=== PATIENT | female | born 1935 | race Caucasian/White ===

== ENCOUNTER → 2017-04-26 | Outpatient (CLI) | payer MEDICARE, BC ==
[~2017-04-26] MED LIST: ASA5UEC PO; ASPIRIN EC81 M1 PO; AUGMENTIN 875-1 EACH PO; CALCIUM 600 +1 EAC1 PO; CEFUROXIME250 MG PO; CIPRO500 MG PO; COLACE100 MG PO; COUMADIN 5 MG TA5 M1; CYMBALTA60 MG PO; DOXYCYCLINE 10100 MG PO; DURAGESIC25 MCG/HR TRANSDERM; ELIQUIS2.5 MG PO; GABAPENTIN 100100 MG PO; HYDROCODONE-AP1 EAC6 PO; LIDOPATCH1 EACH TOP; LOVENOX; MEDROLDOSEPACK PO; METFORMIN; METFORMIN HCL500 MG PO; MICARDIS 20MG T20 M1 PO; MICARDIS40 MG PO; MOBIC7.5 MG PO; NEURONTIN 300300 M1 PO; NEURONTIN600 MG PO; NORCO 5-325 TA1 EACH PO; ONDANSETRON HCL4 M2 PO; OXYCODONE HCL 55 MG PO; REGLAN 10 MG TA10 MG PO; TETRACYCLINE H500 MG PO; TRAMADOL 50 MG50 MG PO; TRILIPIX45 MG PO; TYLENOL EXTRA500 MG PO; ULTRAM 50MG TAB50 MG PO; VITAMIN D3400 UNIT PO; VITAMIN E400 UNIT PO
== END ==
LOC: M.RAD 12:53
DX: M47.892 Other spondylosis, cervical region (principal); M25.511 Pain in right shoulder; Z98.890 Other specified postprocedural states

== ENCOUNTER 2017-08-08 07:19 | Inpatient (IN) | payer MEDICARE, BC ==
[2017-07-27 09:35] LABS: ABSOLUTE BASOPHILS 0.1 thou/uL (0.0-0.2); ABSOLUTE EOSINOPHILS 0.1 thou/uL (0.0-0.7); ABSOLUTE LYMPHOCYTES 1.4 thou/uL (0.8-5.3); ABSOLUTE MONOCYTES 0.6 thou/uL (0.0-1.2); ABSOLUTE NEUTROPHILS 5.2 thou/uL (1.6-8.1); BASOPHILS 0.7 %; EOSINOPHILS 1.8 %; HEMATOCRIT 38.6 % (37.0-47.0); HEMOGLOBIN 12.8 gm/dL (12.0-15.0); LYMPHOCYTES 18.5 %; MCH 28.2 pg (26.0-34.0); MCHC 33.1 g/dL (28.0-37.0); MONOCYTES 8.6 %; NUCLEATED RBCS 0 /100WBC; PLATELET COUNT* 365 thou/uL (150-400); POLYS 70.4 %; RBC 4.55 mil/uL (4.20-5.00); RDW-CV 13.5 % (10.5-14.5); WBC 7.3 thou/uL (4.0-11.0)
[2017-07-27 09:39] LABS: APTT 23.6 Seconds (25.0-31.3); PROTIME 9.5 Seconds (9.20-11.50)
[2017-07-27 09:52] LABS: ALBUMIN 3.6 g/dL (3.4-5.0); CALCIUM 8.7 mg/dL (8.5-10.1); CREATININE 0.8 mg/dL (0.6-1.3); POTASSIUM 3.6 mmol/L (3.5-5.1); TOTAL BILIRUBIN 0.3 mg/dL (<0.1-1.0); TOTAL PROTEIN 7.7 g/dL (6.4-8.2)
[2017-07-27 10:43] LABS: ESR (SEDRATE) 15 mm/hr (0-30)
--- NOTE | 2017-07-27 16:36 | EKG ---
[place] [address] ELECTROCARDIOGRAM REPORT Name: ANAYELI NANCE Room: PRE IN [facility]#: [id number] Admission: Attend Phys: René Mcallister Discharge: Date of : 35 Report #: [id number] THIS REPORT FOR: //name// [facility] Test Date: 2017-07-27 Test Time: 09:35:15 Pat Name: ANAYELI JONESGE Department: Room: Gender: F Dietetic Technician: : 1935 Requested By: Siddharth Gil Order Number: [id number] Reading MD: Dago Sequeira Measurements Intervals Viola Rate: 85 P: 48 AK: 167 QRS: -56 QRSD: 86 T: 60 QT: 366 QTc: 436 Interpretive Statements Sinus rhythm Left anterior fascicular block Possible anteroseptal infarct, old Compared to ECG 12/10/2016 19:26:26 Left anterior fascicular block now present Myocardial infarct finding now present Electronically Signed On 07-27-2017 16:36:33 CDT by Dago Sequeira [email or web address] <ELECTRONICALLY SIGNED> By: Dago Sequeira MD, [facility] 07/27/17 1636 0935 4 Dago Sequeira MD, [facility] /EPI
[~2017-08-08] VITALS: Ht 157.5 cm; Wt 65.8 kg
[~2017-08-08 07:19] MED LIST changes: -ELIQUIS2.5 MG PO; -OXYCODONE HCL 55 MG PO
[2017-08-08 12:05] VITALS: BP 139/67
[2017-08-08 16:10] VITALS: BP 125/59
[2017-08-08 16:13] VITALS: BP 132/78
--- NOTE | 2017-08-08 16:14 | OP ---
[address] [address] OPERATIVE REPORT Name: ANAYELI NANCE Room: [address] IN .R.#: [id number] Admission: 08/08/17 Attend Phys: René Mcallister Discharge: Date of : 35 Report #: [id number] THIS REPORT FOR: //name// CC: Melanie Barcenas DATE OF SERVICE: 08/08/2017 PREOPERATIVE DIAGNOSES: Primary varus deformity, osteoarthritis of the right knee. POSTOPERATIVE DIAGNOSES: Primary varus deformity, osteoarthritis of the right knee. SURGERY PERFORMED: MicroPort cemented three component right total knee arthroplasty, size 4 femur, size 4 tibia, 32 patella with a 14 mm polyethylene. SURGEON: Siddharht Gil DO. SEMICONDUCTOR WAFERS MARKER:Ajit Hwang DO. SECOND JOB ANALYST: Damaso Joe DO. ANESTHESIA: General anesthetic. followed with adductor block as well as a posterior capsular injection by Orthopedics. The patient did receive Ancef 2 grams IV piggyback preoperatively. She has no drains. SPECIMENS: No specimen. ESTIMATED BLOOD LOSS: 100 mL. No complications. GROSS FINDINGS: This patient prior to surgery had a painful arc of motion with [id number] deformity, primary varus deformity, osteoarthritis with osteophytes throughout, especially the femoral and medial side. The patient did demonstrate intraoperatively eburnated bone across the medial compartment as well as multiple osteophytes, femoral and tibial side medially and posteriorly. The patient post-placement of the prosthesis demonstrated a full global arc of motion with stability through the entire arc of motion. Her patella tracked well through the arc of motion. [address] [address] OPERATIVE REPORT Name: ANAYELI NANCE Room: [address] IN [facility].#: [id number] Admission: 08/08/17 Attend Phys: René Mcallister Discharge: Date of : 35 Report #: [id number] SURGERY IN DETAIL: The patient was taken to the operating room and placed on table, given the benefit of general anesthetic. She had previous to that an adductor block to the right leg. A well-padded tourniquet was placed high on the right thigh. This patient then underwent a Hibiclens scrub and chlorhexidine prep and sterile draping for right total knee surgery. A timeout was called and verified for the right. Surgery began without a tourniquet with a midline incision through skin and subcutaneous tissues across the knee region with a 10 blade scalpel. A second medial parapatellar capsular incision was made with a new knife blade. Patella everted, knee flexed 90 degrees. Hemostasis was maintained. Excess osteophytes were all removed at this stage. The patient did have distal femoral drill hole placed in routine fashion, followed with the distal femoral cut. Once the distal femoral cut was taken in a routine fashion, a standard cut at 3 degrees with the angle. We now went to the tibia side. At this point in time, an external guide was placed across the ankle proximally. The cutting block was secured in place. A wafer of bone was now cut, and a wafer of bone was removed without difficulty. We just skimmed the medial surface below that deficit site with the saw blade. Extension block was applied demonstrating excellent placement, so all pins were now removed. I went back and sized the femur now to a #4 component. Drill holes were placed for the #4, and the 4 in one block was applied. All cuts were now made. A trochlear cut was made. I went back to the tibia size, sized it to #4. At this stage, the small lug guide was left in the baseplate, was left in place. The 4 femur was placed, and we did a trial reduction at this stage. Patella was now cut using a Acacia reamer sized to a 32 and the patella tracked well once it was placed from the trial component. At this point in time, now I Esmarched this right lower extremity and inflated the tourniquet to 275 mmHg. The tibia baseplate now was reamed. The cruciform cut was made in routine fashion. All trial components were now removed. I did pulsatile lavage irrigation, cauterized all posterior corners of the knee at this stage as well. I now cemented in the tibial component #4, the femoral component #4 and the patella with the 14 mm trial spacer was placed in the tibia tray and held in extension until cement had hardened. At this point in time, the trial was removed. I did a posterior capsular injection and periosteal injection as well with the cocktail. I copiously pulsatile lavage irrigated one more time at this stage. All excess cement and debris were now removed. The real 14 mm polyethylene spacer was seated in the tibial tray and tamped into position. Leg was placed through one final range of motion very stable through the entire arc of motion. At this stage, the patient had TXA solution applied to the knee region. The tourniquet was released. Hemostasis was maintained. Capsule was closed with #1 Vicryl, #1 TiCron mryyvv-cc-wesco fashion, subcutaneous tissues with 2-0 Monocryl in inverted fashion and irene for the skin, followed with Mepilex dressing and a small compressive dressing, soft roll, after that with an Hira wrap. The patient was transferred off table, taken to recovery in stable [facility] [address] [place] [address] OPERATIVE REPORT Name: ANAYELI NANCE Room: [address] IN .R.#: [id number] Admission: 08/08/17 Attend Phys: René Mcallister Discharge: Date of : 35 Report #: [id number] condition. I attest I was present for all critical aspects of surgery. Needle, instrument, sponge counts correct. <ELECTRONICALLY SIGNED> By: Siddharth Gil DO 08/08/17 1614 1452 [id number] Gil DO /nt
--- NOTE | 2017-08-08 16:17 | NUR ---
PATIENT ADMITTED FROM PACU TO ROOM 103. ALERT AND ORIENTED. BACK PAIN FROM BED, TRANSFERRED PATIENT TO RECLINER PER HER REQUEST LYING MAKES HER BACK PAIN WORSE. PATIENT TRANSFERRED WITH ASSIST OF 2, GAITBELT, AND WALKER. TEDS IN PLACE. DRESSING TO KNEE DRY AND INTACT. TOLERATING LIQUIDS. O2 2L. CAPNO IN PLACE. SAT 98%. EDUCATED ON FALL PREVENTION. CALL LIGHT WITHIN REACH. WILL CONTINUE TO MONITOR.
--- NOTE | 2017-08-08 17:27 | NUR ---
PATIENT REMAINS ALERT AND ORIENTED. PAIN 6/10. HYDROCODONE GIVEN. PATIENT REMAINS UP IN CHAIR. DINNER ORDERED. IVF INFUSING ORDERED. CAPNO IN PLACE. O2 SAT 97%. CALL LIGHT WITHIN REACH. WILL CONTINUE TO MONITOR.
--- NOTE | 2017-08-08 17:48 | NUR ---
RECIEVED O.T. EVAL AND TX ORDER. WILL DEFER TO P.T. AND NURSING. PLEASE ORDER FURTHER O.T. SERVICES IF NEEDED.
[2017-08-08 20:00] VITALS: BP 109/42
[2017-08-09] VITALS: BP 116/60
[2017-08-09 04:00] VITALS: BP 112/46
[2017-08-09 04:38] LABS: HEMATOCRIT 30.4 % (37.0-47.0); HEMOGLOBIN 10.1 gm/dL (12.0-15.0)
--- NOTE | 2017-08-09 04:41 | NUR ---
PATIENT HAS REMAINED ALERT AND ORIENTED X 4 THROUGHOUT THE SHIFT AND RESTING QUIETLY ON HOURLY ROUNDS. UP TO BSC X 2 WITH ADEQUATE VOIDS. DENIES NAUSEA WITH ORAL FLUIDS. DRESSING RIGHT KNEE CLEAN AND DRY. CPM INITIATED HS, TOLERATED FAIR. MEDICATED FOR PAIN X 3 OF THIS WRITING TO GOOD EFFECT. VITAL SIGNS STABLE WITH O2 ON AT 2L/MIN AND CONTINUOUS CAPNOGRAPHY. CONTINUE TO MONITOR.
[2017-08-09 08:00] VITALS: BP 124/62
--- NOTE | 2017-08-09 16:05 | NUR ---
PATIENT REMAINS ALERT AND ORIENTED. RATES PAIN 10/10 MOST OF TIME. HYDROCODONE,OXYIR, AND FENTANYL GIVEN ORDERED. USED CPM X2 HOURS THIS AFTERNOON. UP TO CHAIR INTERMITTENTLY. RA SAT 95%. DRESSING TO KNEE DRY AND INTACT. ICE PACKS PROVIDED. SCD'S IN USE. VOIDING PER COMMODE. MILK OF MAG THIS AFTERNOON PATIENT HAS NOT HAD BM SINCE 08/06. BED ALARM SET. WILL CONTINUE TO MONITOR.
[2017-08-09 16:10] VITALS: BP 124/77
--- NOTE | 2017-08-09 18:46 | NUR ---
ISOLATION DC'S THIS AM PER INFECTION CONTROL NURSE
[2017-08-09 21:00] VITALS: BP 114/49
[2017-08-09 23:50] VITALS: BP 124/53
[2017-08-10 04:00] VITALS: BP 127/55
[2017-08-10 04:33] LABS: HEMOGLOBIN 9.9 gm/dL (12.0-15.0)
--- NOTE | 2017-08-10 04:59 | NUR ---
PATIENT ALERT AND ORIENTED. VITALS STABLE PLACED ON 2L AT HS, DUE TO 02 SAT OF 88% ON RA. LEFT KNEE DRESSING C/D/I. ICEPACK IN PLACE. STATES THAT PAIN IS BETTER CONTROLLED. UP WITH ASSIST X 1 TO BSC, SLOW TO AMBULATE. HOURLY ROUNDS. BED ALARM IN USE. NURSING WILL CONTINUE TO MONITOR.
[2017-08-10 08:15] VITALS: BP 102/50
[2017-08-10 08:31] VITALS: BP 102/50
--- NOTE | 2017-08-10 12:20 | NUR ---
PT.UP IN CHAIR. HAS BEEN NAUSEATED TODAY. SHE LIVES IN A [place]UP[place]. HER DAUGHTER LIVES WITH HER. SHE USES A WALKER. WAS IN OUR REHAB UNIT LAST YEAR AND USED [facility] FOR HOME HEALTH WHEN SHE CAME HOME. SHE IS NORMALLY FAIRLY INDEPENDENT AT HOME. COOKS,CLEANS,DRIVES. SHE FEELS SHE SHOULD GO TO [place] FOR A SHORT STAY . SHE SAID HER DAUGHTER PROBABLY WOULD NOT BE MUCH HELP. SHE FEELS SHE WILL GET MORE THERAPY AT [facility] ALSO. CM FAXED A REFERRAL TO [facility]. POSSIBLY READY FOR DISCHARGE TOMORROW.
--- NOTE | 2017-08-10 15:21 | NUR ---
ASSUMED CARES OF PT AT 0700. PT IN BED, BED IN LOW LOCKED POSITION, FALL PRECAUTIONS IN PLACE AND ACTIVE. CALL BUTTON AND PERSONAL ITEMS IN PT REACH. PT A&O X4, HRRR PER AUSCULTATION, LUNGS CLEAR TO DIMINISHED PER AUSCULTATION. VSS ON RA, AFEBRILE, PERRLA, PLEASANT, COOPERATIVE, TAKES MED WELL PO. PT OCC. STRESS INCONTINENCE. TREATING FOR CONSTIPATION, NO BM YET ON THIS SHIFT. PULSES WNL PEDAL AND RADIAL. PT UP SBA WITH GB AND WALKER, WBAT ON LEFT SURGICAL KNEE. DRESSING ON SURGICAL SITE C/D/I. CPM 0-70 TOLERATED, PT STATES PAIN TOLERABLE BETWEEN A 1-4. REFUSING STRONGER PAIN MEDS, PT BELIEVES IT IS CAUSING CONSTIPATION AND N/V THIS MORNING. UP WITH SBA/ONE ASSIST TO BSC. HOURLY ROUNDING AND ACCU CHECKS CONTINUE. WILL CONTINUE TO MONITOR PT PROGRESS AND STATUS.
[2017-08-10 15:55] VITALS: BP 124/61
--- NOTE | 2017-08-10 18:51 | NUR ---
HOURLY ROUNDING TO BE GIVEN TO SEED POTATO CUTTER FOR CONTINUED CARES. PT PRESENTLY ON CPM, PT C/O IT STRETCHES HER LEG TOO STRAIGHT WHEN DOWN TO ZERO. PT OCC. CONFUSED, BUT PRESENTLY A&O X4. VS REMAIN STABLE, NO BM TODAY. ASSESSMENTS AND DOCUMENTATION COMPLETED. PT PROGRESSING TOWARDS GOAL, HOURLY ROUNDING COMPLETED.
[2017-08-10 20:00] VITALS: BP 119/48
[2017-08-10] MEDS ORDERED: OXYCODONE HCL 55 MG PO (20:40)
[2017-08-10] MEDS ORDERED: NORCO 5-325 TA1 EACH PO (20:42)
[2017-08-10] MEDS ORDERED: ELIQUIS2.5 MG PO (20:45)
[2017-08-10 20:47] VITALS: BP 124/61
[2017-08-11] VITALS: BP 119/56
[2017-08-11 03:25] VITALS: BP 109/52
--- NOTE | 2017-08-11 06:53 | NUR ---
Alert and oriented x 4 but forgetful. Rt knee mepilex dressing c,d&i. She refused CPM this am. She's up to bedside commode with assist x 2. She did have a few laxatives since last BM was 08/06. She had projectile vomiting about 500 MLS brown,with some indigested food. Abdomen was distended and she feels bloated. Above reported to Dr Barcenas and orders recieved for a portable abdominal Xray and portable chest Xray. Both were essentially negative for acute process.
[2017-08-11 08:00] VITALS: BP 113/47
--- NOTE | 2017-08-11 12:39 | NUR ---
ORDERS RECEIVED FOR DC TO SNF. PT HAD CHOSEN [facility]. CALLED AND FAXED DC ORDERS TO [facility]. SHE SET UP W/C VAN FOR 3PM. CHART COPIED. RN HAS NUMBER TO CALL REPORT. PT AWARE AND WILL TELL HER DTR WHEN SHE RETURNS TO THE ROOM
[2017-08-11 14:35] VITALS: BP 124/61
[2017-08-11] MEDS ORDERED: METFORMIN HCL500 MG PO ×2 (14:51)
--- NOTE | 2017-08-11 15:07 | NUR ---
PATIENT LEFT UNIT WITH TRANSPORTATION AT 1510 BY WHEELCHAIR. IV DC'D. EDUCATED PATIENT ON NEW MED SCRIPTS AND DISCHARGE INSTRUCTIONS. PATIENT VERBALIZED UNDERSTANDING. ALL BELONGINGS LEFT WITH PATIENT.
[2017-08-11 15:10] VITALS: BP 124/61
== END 2017-08-11 15:12 | DRG 470 ==
LOC: M.PRE 07:19 → M.ORTHSURG 10:34 → M.TBA 10:34 → M.PRE 12:59 → M.ORTHSURG 15:21 → M.TBA 08-09 09:25 → M.ORTHSURG 08-09 09:29
PROVIDERS: Orthopaedic Surgery; ADMIT Internal Medicine
PROC: 0SRC0J9 Replacement of Right Knee Joint with Synthetic Substitute, Cemented, Open Approach (ICD-10-PCS; principal; 2017-08-08)
DX: M17.11 Unilateral primary osteoarthritis, right knee (principal); M21.161 Varus deformity, not elsewhere classified, right knee; I10 Essential (primary) hypertension; F32.9 Major depressive disorder, single episode, unspecified; G25.81 Restless legs syndrome; M48.00 Spinal stenosis, site unspecified; E11.42 Type 2 diabetes mellitus with diabetic polyneuropathy; M54.10 Radiculopathy, site unspecified; Z88.8 Allergy status to other drugs, medicaments and biological substances; Z86.718 Personal history of other venous thrombosis and embolism; Z90.12 Acquired absence of left breast and nipple; Z90.49 Acquired absence of other specified parts of digestive tract; Z90.710 Acquired absence of both cervix and uterus; Z98.42 Cataract extraction status, left eye; Z98.41 Cataract extraction status, right eye; Z82.49 Family history of ischemic heart disease and other diseases of the circulatory system; Z80.3 Family history of malignant neoplasm of breast; Z80.0 Family history of malignant neoplasm of digestive organs; Z79.899 Other long term (current) drug therapy

== ENCOUNTER → 2018-01-04 | Outpatient (CLI) | payer MEDICARE, BC ==
[~2018-01-04] MED LIST changes: +ELIQUIS2.5 MG PO; +OXYCODONE HCL 55 MG PO
--- NOTE | 2018-02-14 15:49 | PAINCON ---
[address] [address] PAIN MANAGEMENT CONSULTATION Name: ANAYELI NANCE Room: [facility].#: [id number] Admission: 01/04/18 Attend Phys: Bishop Ramos MD Discharge: Date of : 35 Report #: [id number] THIS REPORT FOR: //name// CC: Melanie Ramos DATE OF SERVICE: 01/04/2018 CHIEF COMPLAINT: Low back pain. HISTORY OF PRESENT ILLNESS: The patient is an 82-year-old female who has been referred to the Pain Clinic for evaluation of back pain. The patient has pain in her lower back. Also, has pain in her right shoulder and arm. She has undergone right knee replacement on 08/08/2017. She also has had lumbar radicular pain in the past and SI joint pain. These have been treated in the past. The patient notes she can only stand on her feet for about 5-10 minutes before she has to rest. Rates her pain as a 4 out of 10. Gabapentin and Tylenol are helpful. Notes that the pain is worse with walking, standing and with activities of daily living. Notes that medication and rest can be beneficial as well. She has tried tramadol in the past. She has had an MRI, which showed some back degenerative joint disease and stenosis. She does complain of history of chronic constipation. ALLERGIES: EPINEPHRINE when injected in a dentist's office caused some increased heart rate, THIMEROSAL. CURRENT MEDICATIONS: Aspirin 325 mg tablet, calcium/vitamin, vitamin D3 400 units supplement, Cymbalta 60 mg for mood, Neurontin 300 mg t.i.d., Glucophage 1000 mg a.m. and 500 mg p.m., Ultram 50 mg q.8 hours p.r.n. PAST MEDICAL HISTORY: 1. Chronic back pain, chronic left lumbar radiculopathy, lumbar stenosis, weakness. 2. Right leg DVT 2005. 3. Diabetes. 4. Cancer, left breast with mastectomy, hypertension, depression, and restless leg syndrome. PAST SURGICAL HISTORY: 1. Left breast cancer, mastectomy in 1979. 2. Cholecystectomy. 3. Total hysterectomy. 4. Right rotator cuff repair surgery on vertebral/vertebrae. 5. Bilateral cataract surgery. 6. [place] [address] PAIN MANAGEMENT CONSULTATION Name: ANAYELI NANCE Room: [facility]#: [id number] Admission: 01/04/18 Attend Phys: Bishop Ramos MD Discharge: Date of : 35 Report #: [id number] REVIEW OF SYSTEMS: GENERAL: No chills, no vision changes. HEENT: No trauma. No hearing problems. CARDIOVASCULAR: No chest pain or palpitations. ABDOMEN: No gastrointestinal complaints. LABORATORY DATA: CT of the spine shows chronic superior endplate compression fractures involving T12 and L2. The superior plate of T12 vertebral body has mild hyperintensity centrally at the region of a Schmorl's node and probable cavernous hemangioma. There is mild L1-L2 circumferential disk bulge. There is a chronic superior endplate deformity. There is a mild effacement of the ventral thecal sac. AP diameter of the central canal is within normal limits. There is mild bilateral neural foraminal narrowing. PAIN CLINIC ASSESSMENT: 1. The patient has some arthritic changes in the low back area. The patient is not being treated for rheumatoid arthritis. 2. Height 5 feet 3 inches, weight 154 pounds, BMI is 27.4. 3. VITAL SIGNS: Blood pressure 121/69, heart rate 90, respiratory rate 16, room air saturation is 93%, temperature 98.4. 4. Pain score 4/10. 5. Fall risk. The patient has not fallen in the last 3 months. 6. Blood thinner. The patient is not on a blood thinning medication. 7. Hypertension. The patient is not being treated for hypertension. 8. Opioids greater than 6 weeks. The patient is not on a regular opioid regimen. 9. Risk assessment tool. 10. Functional assessment tool. 11. Recreational drug use: The patient denies. 12. Tobacco: The patient does not smoke. 13. Alcohol: The patient denies use of alcoholic beverage. PHYSICAL EXAMINATION: GENERAL: The patient is a well-developed, well-nourished white female, appears her stated age. She is alert and oriented x 3. Affect is appropriate. Speech is fluent. HEENT: Normocephalic, atraumatic. Extraocular eye muscles intact. Sclerae nonicteric. Mucous membranes are moist. NECK: Without JVD or adenopathy. HEART: Regular rate. ABDOMEN: Nontender. Bowel sounds present. LUNGS: Clear to auscultation. EXTREMITIES: The patient has some pain and discomfort with limitations and upper extremity movement. The patient is without a significant amount of kyphosis, lordosis, or scoliosis. Complains of pain and discomfort in the right knee. Has right shoulder pain and limitation of movement of her arm. Notes [address] [place] [address] PAIN MANAGEMENT CONSULTATION Name: ANAYELI NANCE Room: [facility]#: [id number] Admission: 01/04/18 Attend Phys: Bishop Ramos MD Discharge: Date of : 35 Report #: [id number] increased pain and discomfort after standing for about 10-15 minutes. Palpation in the left as well as the right posterior superior iliac spine elicit trigger points in both areas. IMPRESSION: 1. Myofascial pain with trigger points in the left as well as a right L5/S1 paraspinous area near the posterior superior iliac spine. 2. Chronic back pain, chronic left lumbar radiculopathy, lumbar stenosis, weakness. 3. Right leg DVT 2005. 4. Diabetes. 5. Cancer, left breast with mastectomy, hypertension, depression, and restless leg syndrome. RECOMMENDATIONS: We discussed treatment options with the patient. Risks and benefits of trigger point injections to the affected area were discussed. The patient has pain in these areas. We discussed the risk and benefits of an injection to the trigger point areas. They include possibility of infection, worsening of pain, no improvement in pain, nerve damage. The patient elects to proceed. PROCEDURE NOTE: The patient was taken to the procedure area. She was assisted in getting on the examination table. The patient was placed on the examination table and sent perpendicular to the table. A chair was placed under her feet. Her back was sterilely prepped with a chlorhexidine solution and allowed to dry. Palpation in the right as well as the left posterior superior iliac spine areas reproduced the patient's discomfort. A 25-gauge needle was then advanced into the right side near the gluteus beverly/posterior superior iliac spine and near the latissimus dorsi. This reproduced a trigger point. A 25-gauge needle was then advanced into this area. The patient states that she did reproduce her discomfort. A total of 7 mL of 0.5% bupivacaine and 40 mg triamcinolone was injected into the areas. The patient tolerated the procedure well. There were no complications. The patient remained in the pain clinic for an appropriate amount of time. She will follow up in the future. We would like to thank you for letting us participate in her care. We hope she continues to improve. <ELECTRONICALLY SIGNED> By: Bishop Ramos MD 02/14/18 1549 [id number] [id number]. Dayton Ramos MD /nt
== END | disposition home or self-care (01) ==
LOC: M.PC 04:52
DX: M79.18 Myalgia, other site (principal); G89.29 Other chronic pain; M48.061 Spinal stenosis, lumbar region without neurogenic claudication; E11.9 Type 2 diabetes mellitus without complications; I10 Essential (primary) hypertension; F32.9 Major depressive disorder, single episode, unspecified; G25.81 Restless legs syndrome; M19.91 Primary osteoarthritis, unspecified site; Z79.82 Long term (current) use of aspirin; Z86.718 Personal history of other venous thrombosis and embolism; Z90.12 Acquired absence of left breast and nipple; Z85.3 Personal history of malignant neoplasm of breast; Z90.49 Acquired absence of other specified parts of digestive tract; Z90.710 Acquired absence of both cervix and uterus; Z98.890 Other specified postprocedural states; Z98.42 Cataract extraction status, left eye; Z98.41 Cataract extraction status, right eye; Z96.651 Presence of right artificial knee joint; Z88.8 Allergy status to other drugs, medicaments and biological substances; Z79.899 Other long term (current) drug therapy

== ENCOUNTER → 2018-03-19 | Outpatient (CLI) | payer MEDICARE, BC | LOC: M.RAD 14:32 | DX: M47.22 Other spondylosis with radiculopathy, cervical region (principal); M43.22 Fusion of spine, cervical region; M43.13 Spondylolisthesis, cervicothoracic region ==

== ENCOUNTER 2018-04-05 14:26 | Emergency (ER) | payer MEDICARE, BC ==
[~2018-04-05] VITALS: Ht 157.5 cm; Wt 68.0 kg
[2018-04-05 15:29] LABS: URINE BILIRUBIN NEGATIVE (Negative); URINE BLOOD NEGATIVE (Negative); URINE CLARITY CLEAR; URINE COLOR YELLOW; URINE GLUCOSE-RANDOM NEGATIVE (Negative); URINE KETONES NEGATIVE (Negative); URINE LEUKOCYTES-REFLEX NEGATIVE (Negative); URINE NITRITE-REFLEX NEGATIVE (Negative); URINE PROTEIN NEGATIVE (Negative); URINE SPECIFIC GRAVITY 1.015 (1.005-1.030); URINE UROBILINOGEN 0.2 E.U./dl (0.2-1.0)
[2018-04-05 16:11] VITALS: BP 132/98
== END 2018-04-05 16:12 | disposition home or self-care (01) ==
LOC: M.ERS 14:26
PROVIDERS: Nurse Practitioner Family
DX: M54.5 Low back pain (principal); M62.830 Muscle spasm of back; M54.6 Pain in thoracic spine; E11.9 Type 2 diabetes mellitus without complications; Z85.3 Personal history of malignant neoplasm of breast; I10 Essential (primary) hypertension; F32.9 Major depressive disorder, single episode, unspecified; G25.81 Restless legs syndrome; Z90.49 Acquired absence of other specified parts of digestive tract; Z90.710 Acquired absence of both cervix and uterus; Z88.1 Allergy status to other antibiotic agents; Z88.8 Allergy status to other drugs, medicaments and biological substances; Z86.718 Personal history of other venous thrombosis and embolism

== ENCOUNTER → 2018-07-12 | Outpatient (CLI) | payer MEDICARE, BC | END | disposition home or self-care (01) | LOC: M.PC 12:40 | DX: M54.16 Radiculopathy, lumbar region (principal); Z79.899 Other long term (current) drug therapy; Z88.8 Allergy status to other drugs, medicaments and biological substances ==

== ENCOUNTER → 2019-04-23 | Outpatient (CLI) | payer BC ==
[~2019-04-23] MED LIST changes: +ASPIRIN325 PO
--- NOTE | ~2019-04-23 | PAINCON ---
[address] [address] PAIN MANAGEMENT CONSULTATION Name: ANAYELI NANCE Room: [facility].#: [id number] Admission: 04/23/19 Attend Phys: Bishop Ramos MD Discharge: Date of : 35 Report #: [id number] THIS REPORT FOR: //name// CC: Melanie Ramos DATE OF SERVICE: 04/23/2019 CHIEF COMPLAINT: Return of low back pain, which is bad when I am standing and walking. HISTORY: The patient is an 83-year-old female who has been followed in the pain clinic because of chronic pain. The patient has spinal stenosis. Notes that she is limited in her ability to walk any significant distance because of her pain. Over the past 3 months, she has noticed a worsening of this pain and discomfort. When she parked in front of the hospital today she had found it quite difficult to get to the pain clinic. When shopping, she generally leans on a cart while walking. She can only lasts' for approximately 15 minutes of standing. She states that she had a problem with the disk. About 6 months ago, she had a procedure where they put cement in the disk. She has returned today with the hopes of undergoing an epidural steroid injection and that this will provide pain relief and benefit. ALLERGIES: EPINEPHRINE CAUSED INCREASE IN HEART RATE AND IN A DENTIST'S OFFICE. CURRENT MEDICATIONS: Aspirin 325 mg, calcium, vitamins, vitamin D3 400 units, Cymbalta 60 mg for mood, Neurontin 300 mg t.i.d., Glucophage 1000 mg a.m., metformin 500 mg p.m., Ultram 50 mg every 8 hours p.r.n. PAIN CLINIC ASSESSMENT/PQRS: 1. The patient has some arthritic changes in her low back area. She is not being treated for rheumatoid arthritis. 2. Height 5 feet 3 inches, weight 158 pounds, BMI is 28. 3. Vital signs: Blood pressure is 130/62, heart rate was 85, respiratory rate 16, room air saturation is 91%, temperature 98.2. 4. Pain intensity 5-6/10. 5. Fall history: The patient has not fallen in the last 3 months. 6. Blood thinner. The patient is not on a blood thinning medication. 7. Hypertension. The patient is not being treated for hypertension. 8. Opioids greater than 6 weeks. The patient is not on a regular opioid regimen. 9. Risk assessment tool, low for opioid use. 10. Functional assessment tool has been reviewed. 11. Recreational drug use: The patient denies. 12. Tobacco: The patient denies use of tobacco. 13. Alcohol. The patient [place] [address] PAIN MANAGEMENT CONSULTATION Name: ANAYELI NANCE Room: [facility]#: [id number] Admission: 04/23/19 Attend Phys: Bishop Ramos MD Discharge: Date of : 35 Report #: [id number] PHYSICAL EXAMINATION: GENERAL: The patient is a well-developed, well-nourished white female. Appears her stated age. She is alert and oriented x 3. Her affect is appropriate. Speech is fluent. HEAD, EYES, EARS, NOSE, AND THROAT: Normocephalic, atraumatic. Extraocular eye muscles intact. The patient is wearing glasses. NECK: Without adenopathy or JVD. HEART: Regular rate. ABDOMEN: Nontender. Bowel sounds present. MUSCULOSKELETAL: Upper extremity muscle strength judged 4+, for the major muscle groups in the upper extremity. The patient is without significant amounts of scoliosis, kyphosis. The patient has pain that is radiating down the lower portion of her back. Has pain that is radiating in the L5-S1 dermatomal distribution. IMPRESSION: 1. Lumbar radiculopathy with L5-S1 dermatomal distribution. 2. History of right L5-S1 discomfort. 3. Chronic back pain with lumbar radicular history. 4. Lumbar stenosis with weakness. 5. Right leg deep venous thrombosis in 2005. 6. Diabetes. 7. History of left breast cancer with mastectomy. 8. Hypertension. 9. Depression. 10. Restless legs syndrome. RECOMMENDATIONS: We discussed treatment options with the patient. Risks and benefits of an epidural steroid injection were discussed. Questions were sought and answered. Possible complications could include but are not limited to infection, worsening pain, no improvement in pain, increased headache from spinal tap. She elects to proceed. PROCEDURE NOTE: The patient was taken to the procedure area. She was then assisted in getting on the examination table. Her back was sterilely prepped with a Betadine solution. At the L4-L5 interspace 0.25% bupivacaine was infiltrated. A 17-gauge Tuohy with loss of resistance technique was used to gain access to the epidural space. The patient stated while in the procedure room that the pain is most problematic in the L4-L5 dermatomal distribution today. A 25-gauge needle was then advanced at the L4-L5 area. Fluoroscopy was used to facilitate appropriate placement of the needle. A 17-gauge Tuohy with loss of resistance technique at the L4-L5 space was then used. There was no CSF, heme or paresthesia. A total of 80 mg Depo-Medrol, 40 mg triamcinolone and 2 mL of [facility] [address] [place] [address] PAIN MANAGEMENT CONSULTATION Name: ANAYELI NANCE Room: [facility]#: [id number] Admission: 04/23/19 Attend Phys: Bishop Ramos MD Discharge: Date of : 35 Report #: [id number] 0.25% bupivacaine was injected. The patient tolerated the procedure well. There were no complications. She remained in the Pain Clinic for an appropriate amount of time. She will follow up in the future as needed. We hope she continues to improve. A total of 46 seconds fluoroscopy time was used. We would like to thank you for letting us to participate in her care. By: [id number] [id number]. Dayton Ramos MD /ALEJANDRA
== END | disposition home or self-care (01) ==
LOC: M.PC 10:30
DX: M54.16 Radiculopathy, lumbar region (principal); G89.29 Other chronic pain; M48.061 Spinal stenosis, lumbar region without neurogenic claudication; E11.9 Type 2 diabetes mellitus without complications; I10 Essential (primary) hypertension; F32.9 Major depressive disorder, single episode, unspecified; Z85.3 Personal history of malignant neoplasm of breast; Z86.718 Personal history of other venous thrombosis and embolism; Z79.01 Long term (current) use of anticoagulants; Z98.890 Other specified postprocedural states; Z79.899 Other long term (current) drug therapy; Z88.8 Allergy status to other drugs, medicaments and biological substances

== ENCOUNTER → 2019-11-01 | Outpatient (CLI) | payer BC | LOC: M.RAD 11:00 | PROVIDERS: ATTEND Family Medicine | DX: Z12.31 Encounter for screening mammogram for malignant neoplasm of breast (principal); Z90.12 Acquired absence of left breast and nipple; Z85.3 Personal history of malignant neoplasm of breast ==

== ENCOUNTER → 2020-02-13 | Outpatient (CLI) | payer BC ==
[~2020-02-13] MED LIST changes: -ASPIRIN325 PO
--- NOTE | 2020-03-05 14:42 | PAINCON ---
[address] [address] PAIN MANAGEMENT CONSULTATION Name: ANAYELI NANCE Room: [facility].#: [id number] Admission: 02/13/20 Attend Phys: Bishop Ramos MD Discharge: Date of : 35 Report #: [id number] THIS REPORT FOR: //name// cc: Melanie Fish Ahmad W. DO ~ CC: Melanie Ramos DATE OF SERVICE: 02/13/2020 CHIEF COMPLAINT: Low back pain. HISTORY: The patient is an 84-year-old female who has been seen in the pain clinic in the past because of chronic pain. She has a history of spinal stenosis. She is limited in her ability to walk significant distances because of the pain. She has noticed over the last few months worsening of her pain and discomfort. Notes that the pain increases as the day goes on. This limits her activity. She is unable to stay on her feet for more than 5-6 minutes. The onset of pain becomes quite significant and causes her to sit. She has had epidural steroid injections and gleaned some benefit from this. Rates her pain as a 5/10. She has returned today to undergo an injection with the hopes of improving her discomfort. 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 Notes that cold weather, walking, bending and lifting all have caused more problems at this juncture. ALLERGIES: EPHEDRINE CAUSES INCREASED HEART RATE IN A DENTIST'S OFFICE. CURRENT MEDICATIONS: Aspirin 325 mg, calcium, vitamins, vitamin D3 400 units, Cymbalta 60 mg for mood, Neurontin 300 mg t.i.d., Glucophage 1000 mg, metformin 500 mg, Ultram 50 mg q. 8 hours p.r.n. PAIN CLINIC ASSESSMENT AND PQRS: 1. The patient has some arthritic changes in her back. She is not being treated for rheumatoid arthritis. She does have spinal stenosis. 2. Height 5 feet 3 inches, weight 155 pounds, BMI is 27.4. 3. Vital signs: Blood pressure 141/83, heart rate 98, respiratory rate 16, room air saturation 94%, temperature is 98.1. 4. Pain intensity 5-6/10. 5. Fall history: The patient has not fallen in the last 3 months. 6. Blood thinner: The patient is not on a blood thinning medication. 7. Hypertension: The patient is not being treated for hypertension. 8. Opioids greater than 6 weeks: The patient is not receiving opioids on a regular basis. 9. Risk assessment tool: Low for opioid use. 10. Functional assessment tool: Reviewed. 11. Recreational drug use: [place] [address] PAIN MANAGEMENT CONSULTATION Name: ANAYELI NANCE Room: [facility]#: [id number] Admission: 02/13/20 Attend Phys: Bishop Ramos MD Discharge: Date of : 35 Report #: [id number] 12. Tobacco: The patient denies. 13. Alcohol: The patient denies use of alcoholic beverages. PHYSICAL EXAMINATION: GENERAL: The patient is a well-developed, well-nourished white female. Appears her stated age of 84 years. She is alert and oriented x 3. Speech is fluent. HEENT: Normocephalic, atraumatic. Extraocular eye muscles intact. The patient is wearing glasses. She has a facial covering. NECK: Without adenopathy or JVD. HEART: Regular rate. ABDOMEN: Nontender. Bowel sounds present. MUSCULOSKELETAL: Upper extremity muscle strength judged to be 4+/5 for the major muscle groups in the upper extremity. The patient has pain and discomfort in lower portion of her back with pain that radiates down into the L5-S1 area. She has a history of spinal stenosis. She is without significant scoliosis or kyphosis. IMPRESSION: 1. Lumbar radiculopathy in L5-S1 dermatomal distribution. 2. History of right L5-S1 discomfort. 3. Chronic back pain with lumbar radicular history. 4. Lumbar stenosis with weakness. 5. Right leg deep venous thrombosis 2005. 6. Diabetes. 7. History of left breast cancer with mastectomy. 8. Hypertension. 9. Depression. 10. Restless legs syndrome. RECOMMENDATIONS: We discussed treatment options with the patient. Risks and benefits of an epidural steroid injection were discussed. Possible complications of the procedure, which could include but are not limited to infection, worsening of pain, no improvement in pain, nerve damage were discussed and the patient elects to proceed. We discussed the problems with COVID-19. It is pandemic. Should the patient become infected with the virus she may have a more difficult time than she would have without having an injection. She elects to proceed. PROCEDURE NOTE: The patient was taken to the procedure area. She was then assisted in getting on the examination table. Her back was sterilely prepped with a Betadine solution. A 0.25% bupivacaine was infiltrated. A 17-gauge Tuohy with loss of resistance technique was used to gain access to the epidural space. There was no CSF, heme or paresthesia. Total of 80 mg Depo-Medrol, 40 mg triamcinolone and 2 mL of 0.25% bupivacaine was injected. The patient tolerated the procedure well. She will follow up in the future as needed. [facility] [address] [place] [address] PAIN MANAGEMENT CONSULTATION Name: ANAYELI NANCE Room: [facility]#: [id number] Admission: 02/13/20 Attend Phys: Bishop Ramos MD Discharge: Date of : 35 Report #: [id number] We would like to thank you for letting us participate in her care. We hope she continues to improve. <ELECTRONICALLY SIGNED> By: Bishop Ramos MD 03/05/20 1442 [id number]. Dayton Ramos MD /PMT
== END | disposition home or self-care (01) ==
LOC: M.PC 08:20
PROVIDERS: ATTEND Anesthesiology Pain Medicine
DX: M54.16 Radiculopathy, lumbar region (principal); G89.29 Other chronic pain; I10 Essential (primary) hypertension; E11.9 Type 2 diabetes mellitus without complications; F32.9 Major depressive disorder, single episode, unspecified; Z85.3 Personal history of malignant neoplasm of breast; Z98.890 Other specified postprocedural states; Z79.899 Other long term (current) drug therapy; Z88.8 Allergy status to other drugs, medicaments and biological substances

== ENCOUNTER 2020-07-31 01:53 | Emergency (ER) | payer BC ==
[~2020-07-31] VITALS: Ht 157.5 cm; Wt 70.3 kg
[2020-07-31 03:03] VITALS: BP 162/97
== END 2020-07-31 03:05 | disposition home or self-care (01) ==
LOC: M.ERS 01:53
DX: R04.0 Epistaxis (principal); E11.9 Type 2 diabetes mellitus without complications; I10 Essential (primary) hypertension; G25.81 Restless legs syndrome; Z90.49 Acquired absence of other specified parts of digestive tract; Z90.710 Acquired absence of both cervix and uterus; Z88.8 Allergy status to other drugs, medicaments and biological substances; Z85.3 Personal history of malignant neoplasm of breast; Z90.12 Acquired absence of left breast and nipple; Z86.718 Personal history of other venous thrombosis and embolism

== ENCOUNTER → 2020-08-18 | Outpatient (CLI) | payer BC ==
[~2020-08-18] MED LIST changes: +FENOFIBRATE150 MG PO
== END | disposition home or self-care (01) ==
LOC: M.PC 10:05
PROVIDERS: ATTEND Anesthesiology Pain Medicine
DX: M54.16 Radiculopathy, lumbar region (principal); G89.29 Other chronic pain; I10 Essential (primary) hypertension; E11.9 Type 2 diabetes mellitus without complications; Z98.890 Other specified postprocedural states; Z79.899 Other long term (current) drug therapy; Z95.3 Presence of xenogenic heart valve; Z90.49 Acquired absence of other specified parts of digestive tract; Z90.710 Acquired absence of both cervix and uterus; Z98.41 Cataract extraction status, right eye; Z98.42 Cataract extraction status, left eye; Z88.8 Allergy status to other drugs, medicaments and biological substances

== ENCOUNTER → 2020-12-30 | Outpatient (CLI) | payer BC | LOC: M.RAD 10:21 | PROVIDERS: ATTEND Nurse Practitioner | DX: Z12.31 Encounter for screening mammogram for malignant neoplasm of breast (principal) ==

== ENCOUNTER 2021-01-27 11:44 | Emergency (ER) | payer BC ==
[~2021-01-27] VITALS: Ht 160 cm; Wt 72.1 kg
[2021-01-27 12:03] LABS: URINE BILIRUBIN NEGATIVE (Negative); URINE BLOOD NEGATIVE (Negative); URINE CLARITY CLEAR; URINE COLOR YELLOW; URINE GLUCOSE-RANDOM NEGATIVE (Negative); URINE KETONES NEGATIVE (Negative); URINE LEUKOCYTES-REFLEX 1+ (Negative); URINE NITRITE-REFLEX NEGATIVE (Negative); URINE PROTEIN NEGATIVE (Negative); URINE UROBILINOGEN 0.2 E.U./dl (0.2-1.0)
[2021-01-27 12:13] LABS: CASTS None Seen /LPF (None Seen); CRYSTALS None Seen /LPF (None Seen); MUCUS None Seen strn/LPF (None Seen); SQUAMOUS 4-10 Moderate /LPF (0-3); URINE RBC None Seen /HPF (0-2); URINE WBC-REFLEX 0-5 Rare /HPF (0-5)
[2021-01-27 12:29] LABS: ABSOLUTE BASOPHILS 0.1 thou/uL (0.0-0.2); ABSOLUTE EOSINOPHILS 0.1 thou/uL (0.0-0.7); ABSOLUTE LYMPHOCYTES 1.7 thou/uL (0.8-5.3); ABSOLUTE MONOCYTES 0.7 thou/uL (0.0-1.2); ABSOLUTE NEUTROPHILS 5.7 thou/uL (1.6-8.1); BASOPHILS 0.9 %; EOSINOPHILS 1.7 %; HEMATOCRIT 35.9 % (37.0-47.0); HEMOGLOBIN 11.9 gm/dL (12.0-15.0); LYMPHOCYTES 20.4 %; MCH 27.8 pg (26.0-34.0); MCHC 33.2 g/dL (28.0-37.0); MCV 83.8 fL (80.0-100.0); MONOCYTES 8.8 %; MPV 7.7 fl. (7.2-11.1); NUCLEATED RBCS 0 /100WBC; PLATELET COUNT* 416 thou/uL (150-400); POLYS 68.2 %; RBC 4.28 mil/uL (4.20-5.00); RDW-CV 13.2 % (10.5-14.5); WBC 8.3 thou/uL (4.0-11.0)
[2021-01-27 12:36] LABS: CALCIUM 9.3 mg/dL (8.5-10.1); CREATININE 1.2 mg/dL (0.6-1.3); POTASSIUM 3.9 mmol/L (3.5-5.1)
[2021-01-27 12:40] LABS: ALBUMIN 3.5 g/dL (3.4-5.0); TOTAL BILIRUBIN 0.4 mg/dL (<0.1-1.0); TOTAL PROTEIN 7.7 g/dL (6.4-8.2)
--- NOTE | 2021-01-27 13:34 | EKG ---
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: LULA : 1935 Requested By: Quinten Pascual Order Number: [id number] MD: Talha Adams Measurements Intervals Caro Rate: 92 P: 15 OH: 148 QRS: -52 QRSD: 86 T: 48 QT: 357 QTc: 442 Interpretive Statements Sinus rhythm Ventricular premature complex Left anterior fascicular block Abnormal R-wave progression, late transition Compared to ECG 07/27/2017 09:35:15 Ventricular premature complex(es) now present Electronically Signed On 01-27-2021 13:33:59 CDT by Talha Adams [email or web address] <ELECTRONICALLY SIGNED> By: Talha Adams MD, FAC 01/27/21 1333 1206 1206 Talha Adams MD, [facility] /EPI
[2021-01-27 14:09] VITALS: BP 124/68
== END 2021-01-27 14:09 | disposition home or self-care (01) ==
LOC: M.ERS 11:44
PROVIDERS: Family Medicine
DX: R10.13 Epigastric pain (principal); E11.9 Type 2 diabetes mellitus without complications; I10 Essential (primary) hypertension; F32.9 Major depressive disorder, single episode, unspecified; G25.81 Restless legs syndrome; Z98.890 Other specified postprocedural states; Z90.49 Acquired absence of other specified parts of digestive tract; Z90.710 Acquired absence of both cervix and uterus; Z79.82 Long term (current) use of aspirin; Z79.899 Other long term (current) drug therapy; Z88.6 Allergy status to analgesic agent

== ENCOUNTER 2021-05-04 10:08 | Emergency (ER) | payer BC ==
[~2021-05-04] VITALS: Ht 157.5 cm; Wt 68.5 kg
[2021-05-04 10:51] LABS: URINE BILIRUBIN NEGATIVE (Negative); URINE BLOOD NEGATIVE (Negative); URINE CLARITY CLEAR; URINE COLOR YELLOW; URINE GLUCOSE-RANDOM NEGATIVE (Negative); URINE KETONES NEGATIVE (Negative); URINE LEUKOCYTES 1+ (Negative); URINE NITRITE NEGATIVE (Negative); URINE PROTEIN NEGATIVE (Negative); URINE SPECIFIC GRAVITY 1.015 (1.005-1.030); URINE UROBILINOGEN 0.2 E.U./dl (0.2-1.0)
[2021-05-04 10:59] LABS: SQUAMOUS 0-3 Few /LPF (0-3); URINE RBC 0-2 Rare /HPF (0-2); URINE WBC 6-15 Few /HPF (0-5)
[2021-05-04 11:00] LABS: BACTERIA 1-9 Few /HPF (None Seen); CASTS None Seen /LPF (None Seen); CRYSTALS None Seen /LPF (None Seen)
[2021-05-04] MEDS ORDERED: HYDROCODON-ACE1 EAC7 PO (11:48)
[2021-05-04] MEDS ORDERED: CEPHALEXIN500 MG PO (12:07)
[2021-05-04 12:10] VITALS: BP 150/88
== END 2021-05-04 12:10 | disposition home or self-care (01) ==
LOC: M.ERS 10:08
PROVIDERS: Physician Assistant
DX: M54.50 Low back pain, unspecified (principal); N39.0 Urinary tract infection, site not specified; E11.40 Type 2 diabetes mellitus with diabetic neuropathy, unspecified; I10 Essential (primary) hypertension; F32.9 Major depressive disorder, single episode, unspecified; Z90.49 Acquired absence of other specified parts of digestive tract; Z90.710 Acquired absence of both cervix and uterus; Z98.890 Other specified postprocedural states; Z85.3 Personal history of malignant neoplasm of breast; Z79.899 Other long term (current) drug therapy; Z79.82 Long term (current) use of aspirin; Z88.8 Allergy status to other drugs, medicaments and biological substances; W18.40XA Slipping, tripping and stumbling without falling, unspecified, initial encounter; Y93.89 Activity, other specified; Y92.89 Other specified places as the place of occurrence of the external cause; Y99.8 Other external cause status